=== PATIENT | male | born 1965 | race Caucasian/White ===

== ENCOUNTER 2018-10-30 16:51 | Emergency (ER) | payer MEDICAID ==
[~2018-10-30] VITALS: Ht 175.3 cm; Wt 89.8 kg
--- NOTE | 2018-10-30 16:57 | NUR ---
Patient ambulated to bed 5. RN evaluating patient at bedside.
[2018-10-30 17:00] VITALS: BP 160/121
--- NOTE | 2018-10-30 17:12 | NUR ---
53/ M BIB SELF. PT. REPORTS HAVING HIGH BLOOD PRESSURE. PATIENT WAS AT [employer] AND HAD PHYSICAL DONE AND BP WAS ELEVATED. WAS TOLD TO FOLLOW UP WITH AN MD. HX: DENIES RX: DENIES
[2018-10-30] MEDS ORDERED: HYDROCHLOROTHIAZIDE 25 MG TAB PO SCH (17:25)
[2018-10-30 18:01] LABS: BASOPHILS % (AUTO) 0.6 % (0.0-2.0); EOSINOPHILS # (AUTO) 0.2 K/uL (0-0.4); HEMATOCRIT 41.2 % (36-52); HEMOGLOBIN 13.6 g/dL (12.0-18.0); LYMPHOCYTES # (AUTO) 1.8 K/uL (2.0-11.5); LYMPHOCYTES % (AUTO) 22.7 % (20.5-51.1); MEAN CORPUSCULAR HEMOGLOBIN 28 pg (27-31); MEAN CORPUSCULAR HGB CONC 33 g/dL (33-37); MEAN CORPUSCULAR VOLUME 85.4 fL (80-94); MONOCYTES # (AUTO) 0.8 K/uL (0.8-1.0); MONOCYTES % (AUTO) 10.4 % (1.7-9.3); NEUTROPHILS % (AUTO) 64.3 % (42.2-75.2); PLATELET COUNT (AUTO) 228 K/uL (140-450); RED BLOOD CELL COUNT(AUTO) 4.83 MIL/uL (4.20-6.10); RED CELL DISTRIBUTION WIDTH 13.8 % (11.6-13.7); WHITE BLOOD COUNT (AUTO) 7.8 K/uL (4.8-10.8)
[2018-10-30 18:24] LABS: POTASSIUM 3.9 mmol/L (3.5-5.1)
[2018-10-30 18:25] LABS: ALBUMIN 3.7 g/dL (3.4-5.0); ANION GAP 9.7 (8-16); CARBON DIOXIDE 30.2 mmol/L (21-32); CREATININE 0.9 mg/dL (0.7-1.3); THYROID STIMULATING HORMONE 1.41 uIU/mL (0.34-3.74); TOTAL BILIRUBIN 0.4 mg/dL (0.0-1.0)
--- NOTE | 2018-10-30 18:30 | NUR ---
PT. SITTING IN SEMI FOWLERS, DENIES PAIN, DENIES N/V, DENIES FATIGUE. CONTINUES TO AWAIT FOR DISPO.
--- NOTE | 2018-10-30 19:12 | NUR ---
Patient discharged with v/s stable. Written and verbal after care instructions given and explained. Patient alert, oriented and verbalized understanding of instructions. Ambulatory with steady gait. All questions addressed prior to discharge. ID band removed. Patient advised to follow up with PMD. Rx of HYDROCHLOROTHIAZIDE given. Patient educated on indication of medication including possible reaction and side effects. Opportunity to ask questions provided and answered.
[2018-10-30 19:14] VITALS: BP 142/96
== END 2018-10-30 19:12 | disposition home or self-care (01) ==
LOC: MED 16:51
DX: I10 Essential (primary) hypertension (principal); F17.210 Nicotine dependence, cigarettes, uncomplicated
CPT/HCPCS: 36415; 80053; 84443; 85025; 93005; 99284

== ENCOUNTER 2018-10-31 16:43 | Emergency (ER) | payer MEDICAID ==
[~2018-10-31] VITALS: Ht 175.3 cm; Wt 89.8 kg
[2018-10-31 17:36] VITALS: BP 160/101
--- NOTE | 2018-10-31 17:44 | NUR ---
PT INITIALLY WALKED TO BED 11 ENCOURAGE TO STAY BUT DECIDED TO LEAVE AND COME BACK ANOTHER DAY;LWBS
== END 2018-10-31 17:44 | disposition left against medical advice (07) ==
LOC: MED 16:43
DX: F41.9 Anxiety disorder, unspecified (principal); Z53.21 Procedure and treatment not carried out due to patient leaving prior to being seen by health care provider

== ENCOUNTER 2018-11-01 05:25 | Emergency (ER) | payer MEDICAID ==
[~2018-11-01] VITALS: Ht 175.3 cm; Wt 85.7 kg
[2018-11-01 05:39] VITALS: BP 184/110
[2018-11-01] MEDS: cloNIDine 0.1 MG TAB PO ONE ×2 (05:46)
[2018-11-01] MEDS: SIMETHICONE 40 MG/0.6 ML PO ONE (05:59)
[2018-11-01 06:30] VITALS: BP 174/94
== END 2018-11-01 06:30 | disposition home or self-care (01) ==
LOC: MED 05:25
DX: I10 Essential (primary) hypertension (principal)
CPT/HCPCS: 99283

== ENCOUNTER 2018-11-02 16:08 | Emergency (ER) | payer MEDICAID ==
[~2018-11-02] VITALS: Ht 175.3 cm; Wt 85.7 kg
[2018-11-02 16:46] VITALS: BP 142/98
--- NOTE | 2018-11-02 16:51 | NUR ---
PT AMBULATES BACK TO THE LOBBY
--- NOTE | 2018-11-02 17:00 | NUR ---
Note undone in EDM - 11/02/18 at 1847 by DENNIS 53M BIB SELF FOR BLOOD PRESSURE MAINTANCE; WAS SEEN ON 10/30, 11/01 AND INCREASE HYDROCHLOROTHIAZIDE FROM 12.5MG TO 25MG STARTED YESTERDAY; DENIES N/V/D, DIZZINESS, OR HEAD ACHE; PT IS AOX4 TO PERSON, PLACE, TIME, AND SITUATION. RR ARE EVEN AND UNLABORED. NAD. VSS. AWAITING ER MD [place].
--- NOTE | 2018-11-02 18:35 | NUR ---
PT AMBULATED TO RM 11 WITH STEADY GAIT
--- NOTE | 2018-11-02 18:45 | NUR ---
53M BIB SELF FOR BLOOD PRESSURE MAINTANCE; WAS SEEN ON 10/30, 11/01 AND INCREASE HYDROCHLOROTHIAZIDE FROM 12.5MG TO 25MG STARTED YESTERDAY; DENIES N/V/D, DIZZINESS, OR HEAD ACHE; PT IS AOX4 TO PERSON, PLACE, TIME, AND SITUATION. RR ARE EVEN AND UNLABORED. NAD. VSS. AWAITING ER MD [place].
--- NOTE | 2018-11-02 19:15 | NUR ---
PT SITTING UP IN BED, VSS. PT BP IS AT 143/ 92 AT THIS TIME. ER MADE AWARE
--- NOTE | 2018-11-02 19:17 | NUR ---
Pt report given to [facility] REN[facility]. Transfer of care at this time.
[2018-11-02] MEDS ORDERED: ENALAPRILAT 2.5 MG/2 ML VIAL IVP ONE (20:00)
[2018-11-02 22:05] VITALS: BP 132/82
--- NOTE | 2018-11-02 22:05 | NUR ---
PATIENT D/C BY DR. MCKAY. Patient discharged with v/s stable. Written and verbal after care instructions given and explained. Patient alert, oriented and verbalized understanding of instructions. Ambulatory with steady gait. All questions addressed prior to discharge. ID band removed. Patient advised to follow up with PMD. Rx of LISINOPRIL/HYDROCHLOROTHIAZIDE 20MG-25MG given. Patient educated on indication of medication including possible reaction and side effects. Opportunity to ask questions provided and answered.
== END 2018-11-02 22:05 | disposition home or self-care (01) ==
LOC: MED 16:08
DX: I10 Essential (primary) hypertension (principal)
CPT/HCPCS: 96374; 99283; J3490

== ENCOUNTER 2018-11-05 05:33 | Emergency (ER) | payer MEDICAID ==
[~2018-11-05] VITALS: Ht 175.3 cm; Wt 89.8 kg
[2018-11-05 05:37] VITALS: BP 136/78
--- NOTE | 2018-11-05 05:37 | NUR ---
TO BED # 3 AMBULATORY, REPORT GIVEN TO KEE RENEE
--- NOTE | 2018-11-05 05:40 | NUR ---
PT ARRIVES TO ER TO BE CLEARED FOR WORK FOR HTN. NO HTN ON ARRIVAL , PT IS TAKING RX FOR HTN AND HAS BEEN TREATED IN ER THROUGHOUT THE PAST WEEK. PT IS AWAKE AND ACTING APPROPRIATE AT THIS TIME.
--- NOTE | 2018-11-05 05:44 | NUR ---
Dr. Daniels evaluating patient at bedside.
[2018-11-05 05:52] VITALS: BP 136/78
--- NOTE | 2018-11-05 05:54 | NUR ---
Patient discharged with v/s stable. Written and verbal after care instructions given and explained. Patient verbalized understanding. Ambulatory with steady gait. All questions addressed prior to discharge. Advised to follow up with PMD.
== END 2018-11-05 05:54 | disposition home or self-care (01) ==
LOC: MED 05:33
DX: I10 Essential (primary) hypertension (principal)
CPT/HCPCS: 99281